=== PATIENT | male | born 1985 | race Caucasian/White ===

== ENCOUNTER 2021-05-13 16:19 | Emergency (ER) | payer MEDICARE, MEDICAID ==
[~2021-05-13] VITALS: Ht 172.7 cm; Wt 105.0 kg
[2021-05-13 18:15] LABS: BASOPHILS % 0.9 % (0.0-2.0); HEMATOCRIT. 44.3 % (42.0-52.0); HEMOGLOBIN. 14.9 g/dL (14.0-18.0); MEAN CORPUSCULAR VOLUME 83.3 fL (80.0-94.0); MEAN PLATELET VOLUME 8.5 fl (7.4-10.4); MONOCYTES % 9.6 % (2.0-8.0); NEUTROPHILS % 63.5 % (40.0-76.0); PLATELET 233 x1000/uL (130-400); RED BLOOD CELL COUNT 5.32 mill/uL (4.7-6.1); RED CELL DISTRIBUTION WIDTH 15.7 % (11.6-14.6)
[2021-05-13 18:20] LABS: CHLORIDE 106 mEq/L (98-107)
[2021-05-13 18:24] LABS: ETHANOL BLOOD < 10 mg/dL
[2021-05-13 18:27] LABS: CLARITY URINE CLEAR (CLEAR); COLOR URINE YELLOW (YELLOW); KETONES URINE NEGATIVE (NEGATIVE); LEUKOCYTE ESTERASE URINE NEGATIVE (NEGATIVE); NITRITE URINE NEGATIVE (NEGATIVE); OCCULT BLOOD URINE NEGATIVE (NEGATIVE); PROTEIN URINE NEGATIVE (NEGATIVE); SPECIFIC GRAVITY URINE 1.011 (1.005-1.030); UROBILINOGEN URINE 0.2 E.U./dL (0.2-1.0)
[2021-05-13 18:39] LABS: *AMPHETAMINES SCREEN URINE NEGATIVE (NEGATIVE); *BARBITURATES SCREEN URINE NEGATIVE (NEGATIVE); *BENZODIAZEPINES SCREEN URINE NEGATIVE (NEGATIVE)
[2021-05-13 18:40] LABS: *COCAINE SCREEN URINE NEGATIVE (NEGATIVE); CANNABINOID URINE SCREEN NEGATIVE (NEGATIVE); METHADONE URINE SCREEN NEGATIVE (NEGATIVE); OPIATES URINE SCREEN NEGATIVE (NEGATIVE); PHENCYCLIDINE URINE SCREEN NEGATIVE (NEGATIVE)
[2021-05-14] MEDS ORDERED: BENZ1TAB7 MT (13:28)
[2021-05-14] MEDS ORDERED: RISP05 MT (13:28)
[2021-05-14] MEDS ORDERED: DIVA500T3 MT (13:28)
[2021-05-14 14:00] VITALS: BP 142/83
[2021-05-14] MEDS ORDERED: BENZTROPINE MESYLATE 1MG TABLET PO SCH (21:00)
[2021-05-14] MEDS ORDERED: RISPERIDONE 1MG TABLET PO SCH (21:00)
[2021-05-14] MEDS ORDERED: DIVALPROEX SODIUM 500MG DR TABLET PO SCH (21:00)
== END 2021-05-14 14:11 | disposition home or self-care (01) ==
LOC: ER 16:19
DX: F20.9 Schizophrenia, unspecified (principal); U07.1 COVID-19; F31.9 Bipolar disorder, unspecified
CPT/HCPCS: 36415; 80053; 80305; 80320; 81003; 85025; 99285; C9803; U0003; U0005; G0480